=== PATIENT | male | born 1995 | race Caucasian/White ===

== ENCOUNTER 2020-09-10 19:02 | Emergency (ER) | payer OTHER ==
[~2020-09-10] VITALS: Ht 185.4 cm; Wt 85.1 kg
[2020-09-10] MEDS ORDERED: LIDOCAINE 1% MDV 20ML VIAL SC ONE (21:50)
[2020-09-10 22:37] VITALS: BP 152/86
== END 2020-09-10 22:42 | disposition home or self-care (01) ==
LOC: M ED 19:02
DX: S61.210A Laceration without foreign body of right index finger without damage to nail, initial encounter (principal); W26.0XXA Contact with knife, initial encounter; Y92.9 Unspecified place or not applicable; Y93.G1 Activity, food preparation and clean up; Y99.9 Unspecified external cause status